=== PATIENT | female | born 1990 | race Caucasian/White ===

== ENCOUNTER 2022-12-24 09:42 | Emergency (ER) | payer BC, SELFPAY ==
[2022-12-24] VITALS (12 sets, daily range): BP systolic 106–160; BP diastolic 59–89; PULSE 76–112; RESP 16–20; TEMP 36.7; O2SAT 96–100; BMI 37.5
[2022-12-24 09:52] LABS: Microscopic, Urine URINE MICROSCOPIC (MICROSCOPIC)
[2022-12-24 10:07] LABS: Appearance,Urine Clear (Clear); Bilirubin,Urine Negative (Negative); Blood, Urine Negative (Negative); Color,Urine Yellow (Yellow); Glucose,Urine (UA) Negative (Negative); Ketones,Urine Negative (Negative); Nitrate,Urine Negative (Negative); Protein,Urine Negative (Negative); Specific Gravity, Urine 1.025 (1.005-1.030); Urobilinogen,Urine 0.2 EU/dl (0.2)
[2022-12-24 10:08] LABS: Leukocyte Esterase,Urine Negative (Negative)
--- NOTE | 2022-12-24 10:09 | PC.NURSE ---
pt lying on ed stretcher with emesis bag. family at BS. she reports no needs at this time. call light within reach
[2022-12-24 10:29] LABS: Chloride 106 mmol/L (98-107)
[2022-12-24 10:30] LABS: Basophils # 0.1 K/mm3 (0-0.2); Eosinophils # 0.5 K/mm3 (0.0-0.4); Eosinophils % 5.3 % (0.1-12.0); Hemoglobin 11.5 g/dL (12.2-16.2); Lymphocytes # 3.4 K/mm3 (0.7-4.5); Mean Corpuscular HGB Conc 33.7 g/dL (31.8-35.4); Mean Corpuscular Hemoglobin 20.4 pg (27.0-31.2); Mean Corpuscular Volume 60.5 fl (81-99); Mean Platelet Volume 7.3 fl (7.4-10.4); Monocytes # 0.4 K/mm3 (0.1-1.0); Monocytes % 3.9 % (1.7-9.3); Neutrophils # 5.3 K/mm3 (1.8-7.8); Neutrophils % 54.8 % (37.0-80.0); Platelet Count 335 K/mm3 (142-424); Potassium 4.1 mmoL/L (3.5-5.1); Red Blood Count 5.62 M/mm3 (4.20-5.40); Red Cell Distribution Width 15.8 % (11.5-17.5); Sodium 142 mmol/L (136-145); White Blood Count 9.7 K/mm3 (4.8-10.8)
--- NOTE | 2022-12-24 10:30 | HMH.EDGENADL ---
Discharge Plan Disposition Patient Disposition: Home, Self-Care Condition: Good Prescriptions Prescriptions: New promethazine 25 mg tablet 25 mg PO Q6H PRN (Reason: sedation) Qty: 10 0RF Referrals Follow up/Referrals: Hermelinda Cohn APRN [Primary Care Provider] - See instructions Activity Restrictions/Add. Instructions Additional Instructions/Restrictions: Phenergan as needed for nausea. Continue ibuprofen for pain. Call your primary care provider today to arrange further care. Additional instructions for ABDOMINAL PAIN: See your physician as soon as possible for further evaluation. Return immediately if worsening abdominal pain, vomiting, shortness of breath, fever, vomiting of blood or abdominal distention. Clinical Impressions Clinical Impression: Abdominal pain, Nausea Instructions Patient Instructions: DI for Acute Abdominal Pain, DI for Nausea -- Adult Discharge ED Provider: Jovany Chao Adult HPI General Chief complaint: Abdominal Pain Stated complaint: abd pain, phy ref Time Seen by Provider: 12/24/22 10:25 Mode of Arrival: Ambulatory Source of Information: Patient Limitations: No Limitations Description of Symptoms (Recalled from ER Triage Doc. by RN): pt reports abdominal pain ongoing since last night. upon further assessment pt reports pain off and on for approx. 2 years. pt has had total hysterectomy. History of Present Illness HPI narrative: Complains of diffuse lower abdominal pain since 5 PM yesterday evening. States that she has a constant pressure in that area with intermittent severe sharp pains. Nausea, but no vomiting. No diarrhea or constipation or urinary symptoms. No fever. States that she has had similar pains for couple of years a couple of times a month but they usually only last an hour or 2 and then go away. This 1 has not gone away. She has never had a work-up for this pain. She has had a prior hysterectomy for endometriosis. She has had a cholecystectomy. She took ibuprofen 800 mg a couple of hours before coming to the emergency room. Declines any further pain medication at this time. Related Data Previous Rx's Medication Instructions Recorded promethazine 25 mg tablet 25 mg PO Q6H PRN sedation #10 tabs 12/24/22 Allergies Allergy/AdvReac Type Severity Reaction Status Date / Time ondansetron [From Zofran] AdvReac Headache Verified 12/24/22 10:18 [facility] Disclaimer: The information contained in this section may have been updated after the patient was seen, as this information can be updated by other users. Social History Smoking Status: Never smoker ROS Obtained: Yes All systems reviewed & no additional complaints except as documented Constitutional Constitutional: Denies fever(s), Denies headache(s) and Denies weakness ENT Ears, Nose, Mouth, and Throat: Denies headache(s), Denies nasal discharge and Denies sore throat Cardiovascular Cardiovascular: Denies chest pain Respiratory Respiratory: Denies shortness of breath and Denies cough Gastrointestinal Gastrointestingal: Reports abdominal pain and nausea; Denies constipation, diarrhea or vomiting Genitourinary Female Genitourinary: Denies difficulty voiding, Denies dysuria and Denies flank pain Musculoskeletal Musculoskeletal: Denies numbness Neurologic Neurologic: Denies headache(s), Denies numbness and Denies weakness Physical Exam General General appearance: alert and in no apparent distress Head Head exam: atraumatic and normocephalic Eye Eye exam: Present normal appearance and EOMI ENT ENT exam: Present mucous membranes moist Neck Neck exam: Present normal inspection and trachea midline Chest Chest inspection: Present normal inspection and symmetric chest wall rise Respiratory Respiratory exam: Present normal lung sounds bilaterally; Absent respiratory distress Cardiovascular Cardiovascular exam: Present regular rate, normal rhythm and normal heart sounds Abdomina
[2022-12-24 10:32] LABS: Alanine Aminotransferase 52 U/L (12-78); Albumin Level 4.5 g/dl (3.5-5.0); Albumin/Globulin Ratio 1.2 (1.1-1.8); Alkaline Phosphatase 80 U/L (38-126); Anion Gap 10.1 mEq/L (5-15); Aspartate Amino Transferase 46 U/L (14-36); Bilirubin,Total 0.8 mg/dl (0.2-1.3); Blood Urea Nitrogen 10 mg/dl (7-17); Calcium 9.3 mg/dl (8.4-10.2); Carbon Dioxide 30 mmol/L (22.0-30.0); Creatinine Clearance Estimated 213 mL/min (50-200); Estimated Glomerular Filt Rate 117 ml/min (>60); GFR (African American) 141 ML/MIN (>60); Globulin 3.7 g/dL (1.3-3.2); Glucose 90 mg/dl (74-100); Total Protein,Serum 8.2 g/dl (6.3-8.2)
[2022-12-24 10:32] LABS: RBC,Urine Occasional #/hpf (0-3)
--- NOTE | 2022-12-24 10:32 | CT_ITS ---
FINAL REPORT TECHNIQUE: After the administration of oral and intravenous contrast, axial images were obtained through the abdomen and pelvis by computed tomography. The study was performed with techniques to keep radiation dose as low as reasonably achievable, (ALARA). Individual dose reduction techniques using automated exposure control or adjustment of mA and/or kV according to the patient's size were employed. CLINICAL HISTORY: abdo pain COMPARISON: May 2017 FINDINGS: Abdomen: The lung bases are clear. There is moderate diffuse fatty infiltration of the liver. The gallbladder is surgically absent. The spleen, pancreas, adrenals and kidneys appear unremarkable. The previously mentioned left renal stone is not identified on this infused exam. The aorta is normal in caliber. There is no free fluid or adenopathy. Pelvis: The appendix is normal. The urinary bladder is unremarkable. There is no free fluid or adenopathy. IMPRESSION: No acute intra-abdominal process. Reviewed, Interpreted and Dictated by Ovidio Ramos MD Transcribed by Nithin Richardson Authenticated and [facility]
[2022-12-24 10:33] LABS: Bacteria,Urine Trace /lpf
[2022-12-24 10:48] LABS: Lipase 133 U/L (23-300)
--- NOTE | 2022-12-24 11:22 | PC.NURSE ---
merly landeros avised after pt was given contrast she vomited
--- NOTE | 2022-12-24 11:58 | PC.NURSE ---
pt lying on ED stretcher, friend at BS. No needs at this time. call light within reach
== END 2022-12-24 13:40 | disposition home or self-care (01) ==
PROVIDERS: Emergency Provider Emergency Medicine; PCP Nurse Practitioner
DX: R10.30 Lower abdominal pain, unspecified (principal); R11.0 Nausea
CPT/HCPCS: 74177; 80053; 81001; 83690; 85025; 96374; 96375; 99285; Q9967

== ENCOUNTER → 2022-12-25 23:00 | Outpatient (CLI) | payer BC, SELFPAY ==
[2022-12-25 18:24] LABS: Basophils # 0.1 K/mm3 (0-0.2); Basophils % 0.6 % (0.1-2.0); Eosinophils # 0.5 K/mm3 (0.0-0.4); Hematocrit 36.8 % (37.0-47.0); Hemoglobin 12.1 g/dL (12.2-16.2); Lymphocytes # 3.4 K/mm3 (0.7-4.5); Lymphocytes % 33.2 % (10-50); Mean Corpuscular HGB Conc 32.8 g/dL (31.8-35.4); Mean Corpuscular Hemoglobin 20.3 pg (27.0-31.2); Mean Corpuscular Volume 61.9 fl (81-99); Mean Platelet Volume 9.9 fl (7.4-10.4); Monocytes # 0.5 K/mm3 (0.1-1.0); Monocytes % 4.9 % (1.7-9.3); Neutrophils # 5.8 K/mm3 (1.8-7.8); Neutrophils % 56.3 % (37.0-80.0); Platelet Count 427 K/mm3 (142-424); Red Blood Count 5.95 M/mm3 (4.20-5.40); Red Cell Distribution Width 15.8 % (11.5-17.5); White Blood Count 10.3 K/mm3 (4.8-10.8)
== END ==
LOC: LAB.DROPOF 12-26 00:07
PROVIDERS: PCP Nurse Practitioner; Visit Provider Nurse Practitioner
DX: R10.30 Lower abdominal pain, unspecified (principal); R11.0 Nausea; R10.9 Unspecified abdominal pain
CPT/HCPCS: 85025; 87086

== ENCOUNTER → 2023-07-23 10:35 | Outpatient (CLI) | payer BC, SELFPAY ==
--- NOTE | 2023-07-23 11:02 | ECG_ITS ---
APPROVED REPORT Exam: Resting ECG HR:73 bpm ECG Measurements Heart Rate 73 AXES [place] 158 P 4 QRSd 102 QRS -6 QT 387 T 2 QTc 413 Conclusion SINUS RHYTHM INCOMPLETE RIGHT BUNDLE BRANCH BLOCK [90+ ms QRS DURATION, TERMINAL R IN V1/V2, 40+ ms S IN I/aVL/V4/V5/V6] VOLTAGE CRITERIA FOR LVH [MEETS CRITERIA IN ONE OF: R(aVL), S(V1), R(V5), R(V5/V6)+S(V1)] ABNORMAL ECG UNCONFIRMED REPORT Electronically signed by : Thierry Otero MD 07/24/2023 20:00:36
[2023-07-23 11:16] LABS: Coronavirus 19, PCR Not Detected (NotDetected); Influenza A, PCR Not Detected (NotDetected); Influenza B, PCR Not Detected (NotDetected)
--- NOTE | 2023-07-23 11:27 | XR_ITS ---
FINAL REPORT CLINICAL HISTORY: chest pain FINDINGS: Two views of the chest were obtained. The heart size and pulmonary vascularity are within normal limits. The mediastinum is normal. No acute pulmonary abnormality is identified. There is no pneumothorax. The bony thorax is intact. IMPRESSION: No active cardiopulmonary disease. Reviewed, Interpreted and Dictated by Gilbert Jacob III, MD Transcribed by Nona Cee Authenticated and [facility]
[2023-07-23 11:40] LABS: Basophils % 0.5 % (0.1-2.0); Eosinophils # 0.2 K/mm3 (0.0-0.4); Eosinophils % 2.8 % (0.1-12.0); Hematocrit 36.4 % (37.0-47.0); Hemoglobin 11.7 g/dL (12.2-16.2); Lymphocytes # 3.3 K/mm3 (0.7-4.5); Lymphocytes % 39.7 % (10-50); Mean Corpuscular HGB Conc 32.2 g/dL (31.8-35.4); Mean Corpuscular Hemoglobin 19.8 pg (27.0-31.2); Mean Corpuscular Volume 61.6 fl (81-99); Mean Platelet Volume 8.1 fl (7.4-10.4); Monocytes # 0.4 K/mm3 (0.1-1.0); Monocytes % 4.8 % (1.7-9.3); Neutrophils # 4.4 K/mm3 (1.8-7.8); Neutrophils % 52.1 % (37.0-80.0); Platelet Count 320 K/mm3 (142-424); Red Cell Distribution Width 15.3 % (11.5-17.5); White Blood Count 8.4 K/mm3 (4.8-10.8)
[2023-07-23 11:50] LABS: Hemoglobin A1C 5.4 % (4.0-6.0)
[2023-07-23 11:59] LABS: D-Dimer 0.73 ug/mL (0.0-0.5)
[2023-07-23 12:12] LABS: Chloride 102 mmol/L (98-107)
[2023-07-23 12:13] LABS: Potassium 4.3 mmoL/L (3.5-5.1); Sodium 139 mmol/L (136-145)
[2023-07-23 12:15] LABS: Alanine Aminotransferase 61 U/L (12-78); Alkaline Phosphatase 96 U/L (38-126); Aspartate Amino Transferase 44 U/L (14-36); Bilirubin,Total 0.7 mg/dl (0.2-1.3); Blood Urea Nitrogen 12 mg/dl (7-17); Estimated Glomerular Filt Rate 116 ml/min (>60); GFR (African American) 140 ML/MIN (>60)
[2023-07-23 12:16] LABS: Albumin Level 4.2 g/dl (3.5-5.0); Albumin/Globulin Ratio 1.2 (1.1-1.8); Anion Gap 14.3 mEq/L (5-15); Calcium 9.8 mg/dl (8.4-10.2); Carbon Dioxide 27 mmol/L (22.0-30.0); Globulin 3.4 g/dL (1.3-3.2); Glucose 91 mg/dl (74-100); Total Protein,Serum 7.6 g/dl (6.3-8.2)
[2023-07-23 12:21] LABS: NT Pro Brain Natriuretic Pep. < 20.0 pg/mL (0-125)
[2023-07-23 12:43] LABS: Thyroid Stimulating Hormone 3.32 uIU/mL (0.465-4.68)
== END ==
LOC: LAB 10:36
PROVIDERS: PCP Nurse Practitioner; Visit Provider Nurse Practitioner
DX: R06.02 Shortness of breath (principal); R07.9 Chest pain, unspecified; J06.9 Acute upper respiratory infection, unspecified
CPT/HCPCS: 36415; 71046; 80053; 83036; 83880; 84443; 85025; 85378; 87636; 93005

== ENCOUNTER → 2023-07-24 16:35 | Outpatient (CLI) | payer BC, SELFPAY ==
--- NOTE | 2023-07-24 16:35 | CT_ITS ---
PROCEDURE INFORMATION: Exam: CTA Chest With Contrast Exam date and time: 07/24/2023 4:44 PM Age: 33 years old Clinical indication: Shortness of breath; Additional info: SOB, elevated d-dimer TECHNIQUE: Imaging protocol: Computed tomographic angiography of the chest with contrast. Exam focused on the arteries. 3D rendering (Not supervised by radiologist): MIP and/or 3D reconstructed images were created by the technologist. Radiation optimization: All CT scans at this facility use at least one of these dose optimization techniques: automated exposure control; mA and/or kV adjustment per patient size (includes targeted exams where dose is matched to clinical indication); or iterative reconstruction. Contrast material: ISOVUE 370; Contrast volume: 70 ml; Contrast route: INTRAVENOUS (IV); REPORTING DATA: Count of CT and Cardiac NM exams in prior 12 months: This patient has received [address] and 0 known cardiac nuclear medicine studies in the 12 months prior to the current study. COMPARISON: CR XR CHEST 2V 07/23/2023 11:34 AM FINDINGS: Pulmonary arteries: Normal. No pulmonary emboli. Aorta: Unremarkable. No aortic aneurysm. No aortic dissection. Lungs: Unremarkable. No consolidation. No masses. Pleural spaces: Unremarkable. No pneumothorax. No pleural effusion. Heart: Unremarkable. No cardiomegaly. No pericardial effusion. Coronary arteries: There is no significant coronary vascular calcification/atherosclerotic disease. Lymph nodes: Unremarkable. No enlarged lymph nodes. Bones/joints: Unremarkable. No acute fracture. Soft tissues: Unremarkable. IMPRESSION: No evidence for clinically relevant pulmonary arterial filling defect, dense parenchymal consolidation, pleural effusion, or pneumothorax. No acute intrathoracic anomaly.
== END ==
LOC: RAD 16:35
PROVIDERS: PCP Nurse Practitioner; Visit Provider Nurse Practitioner
DX: R06.02 Shortness of breath (principal); R07.2 Precordial pain; R79.89 Other specified abnormal findings of blood chemistry
CPT/HCPCS: 71275; Q9967

== ENCOUNTER → 2023-07-28 08:39 | Outpatient (CLI) | payer BC, SELFPAY ==
--- NOTE | 2023-07-28 | CA_ITS ---
APPROVED REPORT Exam: Exercise Treadmill Technologist: Marielena Jenkins Ht: 5 ft 4 in Wt: 224 lbs BSA: 2.05 m2 HR: 82 bpm BP: 150/90 mmHg Indications: Chest pain Medical History Medications: Hyoscyamine,,,,, ProMETHAZINE,,,,, Losartan/HCTZ,,,,, Ciprofloxacin,,,,, Stress Test Details Test: Jose HR Resting HR: 88 bpm Max Heart Rate (APMHR): 188.162986 bpm Max HR Achieved: 167 bpm Target HR (85% APMHR): 159.832898 bpm % of APMHR: 88.83 Recovery HR: 97 bpm BP Resting BP: 150.0/90.0 mmHg Max BP: 180.0/72.0 mmHg Recovery BP: 154.0/92.0 mmHg ECG Resting ECG: Sinus rhythm Clinical Exercise duration: 07:09 min Highest Stage Achieved: Exercise capacity: 10.1 METs Stress ECG Conclusion Symptoms: Dyspnea, chest pain, dizziness, lightheaded Arrhythmias/Ectopy: PVC ST-T Changes: Less than [address] depression Conclusion: Normal EKG response to exercise. Test Summary REST . . . . . . . Sitting REST 03:20 0.0 0.0 88 . 150/ 90 . . Stage 1 01:00 10.0 1.7 111 . . . . Stage 1 02:00 10.0 1.7 118 . . . . Stage 1 03:00 10.0 1.7 115 . 152/ 88 . . Stage 2 01:00 12.0 2.5 130 . 152/ 88 . . Stage 2 02:00 12.0 2.5 142 . 152/ 88 . . Stage 2 03:00 12.0 2.5 143 . 176/ 90 . . Stage 3 01:00 14.0 3.4 163 . . . . Stage 3 01:09 14.0 3.4 166 . . . Stop exercise at 07:09 RECOVERY 01:00 0.0 0.0 144 . 180/ 72 . . RECOVERY 02:00 0.0 0.0 109 . 180/ 72 . . RECOVERY 03:00 0.0 0.0 106 . 176/102 . . RECOVERY 04:00 0.0 0.0 87 . 174/ 94 . . RECOVERY 05:00 0.0 0.0 95 . 154/ 92 . . RECOVERY 05:09 0.0 0.0 97 . 154/ 92 . . Electronically signed by : Thierry Otero MD 07/29/2023 17:17:35
== END ==
LOC: RT 08:39
PROVIDERS: PCP Nurse Practitioner; Visit Provider Family Medicine
DX: R07.9 Chest pain, unspecified (principal)
CPT/HCPCS: 93017

== ENCOUNTER → 2023-09-10 07:34 | Outpatient (CLI) | payer BC, SELFPAY ==
[2023-09-10 19:37] LABS: Coronavirus 19, PCR Not Detected (NotDetected); Influenza A, PCR Not Detected (NotDetected); Influenza B, PCR Not Detected (NotDetected)
== END ==
LOC: LAB.DROPOF 09-11 07:34
PROVIDERS: PCP Family Medicine; Visit Provider Family Medicine
DX: J02.9 Acute pharyngitis, unspecified (principal); B95.0 Streptococcus, group A, as the cause of diseases classified elsewhere
CPT/HCPCS: 87636

== ENCOUNTER → 2023-10-15 08:45 | Outpatient (CLI) | payer BC, SELFPAY ==
[2023-10-15 18:56] LABS: Coronavirus 19, PCR Not Detected (NotDetected); Influenza A, PCR Not Detected (NotDetected); Influenza B, PCR Not Detected (NotDetected)
== END ==
LOC: LAB.DROPOF 10-16 08:45
PROVIDERS: PCP Nurse Practitioner; Visit Provider Nurse Practitioner
DX: J06.9 Acute upper respiratory infection, unspecified (principal)
CPT/HCPCS: 87636

== ENCOUNTER 2024-05-05 10:41 | Emergency (ER) | payer BC, SELFPAY ==
[2024-05-05 10:54] VITALS: BP 135/90; PULSE 94; RESP 16; TEMP 36.7; O2SAT 99; BMI 35.1
--- NOTE | 2024-05-05 11:11 | CT_ITS ---
FINAL REPORT CLINICAL HISTORY: midline pain after lifting COMPARISON: None FINDINGS: CT LUMBAR SPINE TECHNIQUE: Thin section axial CT with sagittal and coronal reconstructions. No evidence of acute fracture. There is grade 1 spondylolisthesis of L5 on S1. There is a right-sided pars defect at L5. No bony canal stenosis is seen. There is a mild annular disc bulge at L5-S1. IMPRESSION: No evidence of fracture. No bony canal stenosis. Grade 1 spondylolisthesis of L5 on S1 associated with right-sided pars defect. This study was performed using automated techniques to achieve radiation exposure as low as reasonably achievable Reviewed, Interpreted and Dictated by Thomas Reddy MD Transcribed by Jada Haque Authenticated and [facility]
--- NOTE | 2024-05-05 11:12 | HMH.EDGENADL ---
Discharge Plan Disposition Patient Disposition: Home, Self-Care Prescriptions Prescriptions: New methocarbamol 500 mg tablet 1,000 mg PO Q8H PRN (Reason: muscle spasm) Qty: 30 0RF lidocaine 4 % adhesive patch,medicated 1 patch topical DAILY PRN (Reason: back pain) Qty: 15 0RF Rx Instructions: may leave on for up to 12 hrs prednisone 50 mg tablet 50 mg PO DAILY 3 Days Qty: 3 0RF No Action losartan-hydrochlorothiazide [Hyzaar] 100-25 mg tablet 0.5 tab PO DAILY Qty: 90 3RF albuterol sulfate 90 mcg/actuation HFA aerosol inhaler 2 puff inhalation Q4-6H PRN (Reason: shortness of breath or wheezing) Qty: 8.5 0RF fluticasone propionate [Flonase Allergy Relief] 50 mcg/actuation spray,suspension 1 spray intranasal DAILY PRN (Reason: allergic symptoms) Qty: 16 0RF Rx Instructions: administer into each nostril hyoscyamine sulfate 0.125 mg tablet 0.125 mg PO QID PRN (Reason: diarrhea or abdominal cramping) Qty: 30 0RF tamsulosin 0.4 mg capsule 0.4 mg PO DAILY Qty: 30 0RF cetirizine [Zyrtec] 10 mg tablet 10 mg PO DAILY Qty: 90 3RF promethazine 25 mg tablet 25 mg PO TID PRN (Reason: nausea and vomiting) Qty: 20 0RF estradiol 0.1 mg/24 hr patch weekly 1 patch transdermal WEEKLY Qty: 4 5RF Referrals Follow up/Referrals: Hermelinda Cohn APRN [Primary Care Provider] - See instructions Activity Restrictions/Add. Instructions Additional Instructions/Restrictions: At this time it was felt you are safe to be discharged home. If new or worsening symptoms please do not hesitate to return the emergency department. Please follow-up with your family doctor in 1 week for continued evaluation as discussed. Please take Tylenol 1000 mg and ibuprofen 600 mg with food every 6 hours for pain as needed. Please take your medication as prescribed. Clinical Impressions Clinical Impression: Bulging disc, Spondylolisthesis Instructions Patient Instructions: DI for Low Back Pain Discharge ED Provider: Wilton Huizar General Adult HPI General Chief complaint: Back Pain/Injury Stated complaint: severe back pain Time Seen by Provider: 05/05/24 11:01 Mode of Arrival: Ambulatory Source of Information: Patient Limitations: No Limitations Description of Symptoms (Recalled from ER Triage Doc. by RN): pt reported to ED for back pain that started last night. Pt states having a tingling feeling in her pelvic area. Pt states going to doctor this morning and was referred to ED for pain. Pt states taking 4 200 mg ibuprofens every 6 hours since yesterday for pain and using ice and heat with no improvement of pain. History of Present Illness HPI narrative: Patient is a 34-year-old female with no pertinent past medical history who presents to the emergency department for evaluation of low back pain. Patient was lifting something yesterday and since then has had back pain in a bandlike distribution around her lower back and in the center. No urinary or fecal incontinence, no weakness. Pain is moderate to severe in intensity and refractory to ibuprofen. Patient has past surgical history of previous hysterectomy. Related Data Previous Rx's Medication Instructions Recorded albuterol sulfate 90 mcg/actuation 2 puff inhalation Q4-6H PRN 07/23/23 aerosol inhaler shortness of breath or wheezing #8.5 grams losartan 100 0.5 tab PO DAILY #90 tabs 07/23/23 mg-hydrochlorothiazide 25 mg tablet (Hyzaar) hyoscyamine sulfate 0.125 mg tablet 0.125 mg PO QID PRN diarrhea or 08/04/23 abdominal cramping #30 tabs tamsulosin 0.4 mg capsule 0.4 mg PO DAILY #30 caps 08/04/23 fluticasone propionate 50 1 spray intranasal DAILY PRN 09/10/23 mcg/actuation nasal allergic symptoms #16 grams spray,suspension (Flonase Allergy Relief) cetirizine 10 mg tablet (Zyrtec) 10 mg PO DAILY #90 tabs 10/15/23 estradiol 0.1 mg/24 hr weekly 1 patch transdermal WEEKLY #4 ea 10/15/23 transdermal patch promethazine 25 mg tablet 25 mg PO TID PRN nausea and 10/15/23 vomiting #20 tabs lidocaine 4 % topical patch 1 patch topical DAILY PRN back 05/05/24 pain #15 ea methocarbamol 500 mg tablet 1,000 mg (2 x 500 mg) PO Q8H PRN 05/05/24 muscle spasm #30 tabs prednisone 50 mg tablet 50 mg PO DAILY back pain 3 days #3 05/05/24 tabs Allergies Allergy/AdvReac Type Severity Reaction Status Date / Time ondansetron [From Zofran] AdvReac Headache Verified 05/05/24 08:48 [facility] Disclaimer: The information contained in this section may have been updated after the patient was seen, as this information can be updated by other users. Medical History (Updated 05/05/24 @ 12:45 by Wilton Huizar MD) Burning sensation of female perineum Acute low back pain with bilateral sciatica Chest pain Hypertension Social History Smoking Status: Former smoker alcohol intake: never current occupational status: employed Travel in the last 8 weeks: None ROS Obtained: Yes Systems reviewed as appropriate & no additional complaints except as documented Physical Exam General General appearance: alert and in no apparent distress Head Head exam: atraumatic and normocephalic Eye Eye exam: Present PERRL ENT ENT exam: Present mucous membranes moist Neck Neck exam: Present normal inspection Chest Chest inspection: Present normal inspection and symmetric chest wall rise Respiratory Respiratory exam: Present normal lung sounds bilaterally; Absent respiratory distress Cardiovascular Cardiovascular exam: Present regular rate and normal rhythm Abdominal Exam Abdominal exam: Present soft; Absent tenderness Extremities Exam Extremities exam: Present normal inspection and other (5 out of 5 strength bilateral lower extremities sensation intact to light touch distally.) Back Exam Back exam: Present normal inspection and tenderness (Low lumbar) Neurological Exam Neurological exam: Present alert, oriented X3 and CN II-XII intact; Absent motor sensory deficit Psychiatric Psychiatric exam: Present normal affect Skin Skin exam: Present warm and dry Medical Decision Making Cesar Inquiry Pt receiving controlled substance: No Vital Signs: 05/05/24 10:54 Temperature 98.0 F Temperature Source Oral Pulse Rate [Left Radial] 94 H Respiratory Rate 16 Blood Pressure [Right Arm] 135/90 Blood Pressure Mean [Right Arm] 105 02 Sat by Pulse Oximetry 99 Oxygen Delivery Method Room Air Orders (Tests/Meds): ED MEDICATIONS Discontinued Medications Generic Name Dose Route Start Last Admin Trade Name Freq PRN Reason Stop Dose Admin Acetaminophen 1,000 mg 05/05/24 11:11 05/05/24 11:19 Acetaminophen 500mg Tab PO 05/05/24 11:12 1,000 mg ONCE ONE Administration Lidocaine 1 each 05/05/24 11:11 05/05/24 11:20 Lidocaine 5% Transdermal Patch TP 05/05/24 11:12 1 each ONCE ONE Administration Methocarbamol 1,000 mg 05/05/24 11:11 05/05/24 11:20 Methocarbamol 500mg Tablet PO 05/05/24 11:12 1,000 mg ONCE ONE Administration ORDERS Category Date Time Status CT lumbar spine wo con Stat Cat Scan 05/05/24 11:11 Completed Medical Decision Narrative: In summary patient is a 34-year-old female with past medical history described above who presents emergency department for evaluation of back pain. Patient is hemodynamically stable nontoxic-appearing upon arrival, afebrile. Differential includes musculoskeletal strain, disc protrusion, fracture, among others. Workup will be conducted with CT lumbar spine, postvoid residual. Initial interventions include Tylenol, methocarbamol, lidocaine patch. CT imaging of the lumbar spine shows grade 1 spondylolisthesis of L5 on S1 associated with right-sided pars defect with mild annular disc bulge at L5-S1. On repeat evaluation patient was well-appearing, no focal neurologic deficits, no incontinence. Postvoid residual concerning. Given this patient is appropriate for discharge at this time will be discharged with symptomatic care and was given multiple return precautions and verbalized understanding. Critical Care Critical Care Time Critical Care Time: No
[2024-05-05] MEDS: ACETAMINOPHEN 500MG TAB 1000 MG PO (11:19)
[2024-05-05] MEDS: LIDOCAINE 5% TRANSDERMAL PATCH 1 EACH TP (11:20)
[2024-05-05] MEDS: METHOCARBAMOL 500MG TABLET 1000 MG PO (11:20)
--- NOTE | 2024-05-05 13:02 | PC.NURSE ---
PVR 34 mL
[2024-05-05] MEDS: predniSONE 20MG TAB 40 MG PO (13:06)
[2024-05-05 13:30] VITALS: BP 139/87; PULSE 82; RESP 16; TEMP 36.7; O2SAT 98
== END 2024-05-05 13:31 | disposition home or self-care (01) ==
PROVIDERS: Emergency Provider Emergency Medicine; PCP Nurse Practitioner
DX: M51.26 Other intervertebral disc displacement, lumbar region (principal); M43.16 Spondylolisthesis, lumbar region; I10 Essential (primary) hypertension
CPT/HCPCS: 72131; 99284

== ENCOUNTER 2024-05-26 07:40 | Outpatient (RCR) | payer BC, SELFPAY ==
--- NOTE | 2024-05-26 12:58 | [facility].PTOPEV ---
PT Outpatient Evaluation Rehab PT Outpatient Evaluation Start: 05/26/24 07:49 Freq: Status: Active Protocol: Document 05/26/24 07:49 MAXIME (Rec: 05/26/24 09:01 MAXIME [email or web address]) E-signed By Christal Chavez, PT Outpatient Therapy Subjective History Subjective History This is an initial evaluation for Trish Allison who presents with acute LBP. Pt reports these symptoms started after pushing a big cabinet ~ 3 weeks ago and noticed the LBP immediately. Pt reports the pain was severe and would radiate into her L hip and R de leon. Pt reports her symptoms have slowly improved since and are about 40-50% improved. Pt works with senior citizens and performs daily exercises. Pt avoids bending, lifting, and twisting. Pt uses heat and topical Icy Hot to relieve her pain. Pt trialed ice but reports no relief with ice. Pt 's goal for physical therapy is to be able to do stretches at home to help my pain in the long run Pt denying worsening weakness. Pt mentioned one episode of incontinence but none since. Pt reports she used to have numbness in groin but it has decreased (reports her PCP is aware of symptoms) CT Impression 05/05: No evidence of fracture. No bony canal stenosis. Grade 1 spondylolisthesis of L5 on S1 associated with right-sided pars defect. New diagnosis of cancer in past 12 No months? Chief Complaint Pain Symptom Type Ache Symptoms Relieved By Rest/Positioning,Heat,Ice Symptoms Aggravated By Sitting,Standing,Bending/ Stooping,Twisting,Lifting Prior Functional Limitations None Current Functional Limitations Lifting,Housework,Driving, Sleeping,Sitting,Recreation Activity Level of pain today (0-10) 3 Pain scale - at its best (0-10) 0 Pain scale - at its worst (0-10) 7 Lumbopelvic Eval Posture Thoracic Spine Posture Standing Position Neutral Lumbar Spine Posture Standing Position Neutral Palapation tenderness bilateral thoracic spinal tenderness Yes: 1/4 lumbar spinal tenderness Yes: 2/4 paraspinal tenderness Yes: 2/4 Lumbar/Sacral Palpation Findings Tenderness Range of Motion Lumbar Spine Active Flexion Range of 70, nonpainful Motion (degrees) Lumbar Spine Active Extension Range of 15, painful Motion (degrees) Left Lumbar Spine Lateral Flexion Active 22, painful Range of Motion (degrees) Right Lumbar Spine Lateral Flexion 20, painful Active Range of Motion (degrees) Lumbar Spine ROM Limitations Pain Manual Muscle Test Bilateral Knee Extension Strength Grade 4- Good- Knee Flexion Strength Grade 4- Good- Hip Flexion Strength Grade 4- Good- Hip Abduction Strength Grade 4- Good- Hip Adduction Strength Grade 4- Good- Special Tests Sciatic Nerve Tension Test Positive Left,Positive Right Crossed Straight Leg Raise Test Positive Left,Positive Right Oswestry Index Section 1 Pain Intensity The pain comes and goes and is moderate Section 2 Personal Care (Washing,Dresing) change my way of washing or dressing in order to avoid pain Section 3 Lifting lifting heavy weights off the floor, but I can manage if they are Section 4 Walking I have no pain when walking Section 5 Sitting Pain prevents me from sitting for more than one hour Section 6 Standing I cannot stand more than 1 hour without increasing pain Section 7 Sleeping Because of my pain, my normal night's sleep is less than 6 hours sleep Section 8 Social Life My social life is normal and gives me no extra pain Section 9 Traveling I get some pain when traveling , but none of my usual forms of travel m Section 10 Changing Degreee of Pain My pain seems to be getting better, but improvement is slow Score and Risk Level Oswestry Sc 14 Oswestry Risk Level Mild Disability Outpatient Therapy Assessment Impairments Problems/Impairmments Palpation Tenderness,Impaired Range of Motion,Impaired Strength,Impaired Standing, Impaired Sitting,Impaired Driving,Impaired Lifting, Impaired Bending,Impaired Recreational Activities, Impaired Work Activities, Impaired Desk/Computer Activities,Subjective C/O Pain Prognosis Rehab Potential Good Comment Pt with deficits and subjective complaints consistent with her medical diagnosis and CT imaging results. Pt would benefit from skilled OP PT to address weakness, pain, and impaired ROM/functioning. Clinical Impression Consistent with Diagnosis Yes Short Term Goals Number of Weeks 3 Increase Range of Motion Yes: Improve by 5 degrees in all limited planes to improve functional ROM Increase Strength Yes: 4/5 BLE MMTs Improve Oswestry Score Yes: Improve by 4 points. Decrease Subjective C/O Pain Yes: At worst LBP 5/10 to demo decreased pain severity. Patient to be Ind w/ HEP Yes Custodial Goals Number of Weeks 6 Decreased Palpation Tenderness Yes: 0/4 TTP paraspinals to decrease symptom irritability. Increase Range of Motion Yes: WNL and painfree AROM to return to PLOF Increase Strength Yes: 5/5 BLE MMTs to maximize daily functioning. Improve Oswestry Score Yes: Decrease score to no disability to return to PLOF and improve QOL. Decrease Subjective C/O Pain Yes: At worst LBP 3/10 to minimize symptoms severity. Patient to be Ind w/ Advanced HEP Yes Outpatient Therapy Plan of Care Treatment Plan May Include Therapeutic Exercise Including Home Yes Exercise Program Manual Therapy Techniques Yes Neuromuscular Re-education Yes Therapeutic Activities to Return to Yes Previous Functional/Work Level Gait Training Yes ADL/Self Care Education Yes Dry Needling Yes Thermal Modalities Yes Electrical Stimulation Yes Ultrasound/Phonophoresis Yes Iontophoresis Yes Orthotics/Bracing/Splinting Yes Massage Yes Eval/Re-Eval Yes Frequency Times per week 2x Duration Number of Weeks 5-6 weeks Addendums This patient is a candidate for social No or vocational rehab? Patient/Guardian verbally acknowledges Yes understanding of treatment program and consents to further treatment? Patient/Guardian verbally acknowledges Yes understanding of diagnosis, prognosis and goals for treatment? Eval Complexity PT Charges 30063 - Low Complexity Shoulder/Elbow Eval Shoulder Objective Measurements Elbow Objective Measurements PHYSICIAN CERTIFICATION: I certify the specified therapy services for Trish Allison are required, authorized, and reviewed every 30 days.
== END 2024-05-26 09:00 | disposition home or self-care (01) ==
LOC: PT 07:40
PROVIDERS: Visit Provider Nurse Practitioner
DX: M54.42 Lumbago with sciatica, left side (principal); M54.41 Lumbago with sciatica, right side; M43.10 Spondylolisthesis, site unspecified; M51.36 Other intervertebral disc degeneration, lumbar region
CPT/HCPCS: 97163

== ENCOUNTER 2024-07-21 19:02 | Outpatient (CLI) | payer BC, SELFPAY ==
[2024-07-21 18:14] LABS: Basophils # 0.1 K/mm3 (0-0.2); Basophils % 0.5 % (0.1-2.0); Eosinophils # 0.5 K/mm3 (0.0-0.4); Eosinophils % 5.3 % (0.1-12.0); Hematocrit 36.2 % (37.0-47.0); Hemoglobin 11.1 g/dL (12.2-16.2); Lymphocytes # 3.6 K/mm3 (0.7-4.5); Lymphocytes % 38.8 % (10-50); Mean Corpuscular HGB Conc 30.6 g/dL (31.8-35.4); Mean Corpuscular Hemoglobin 19.8 pg (27.0-31.2); Mean Corpuscular Volume 64.7 fl (81-99); Mean Platelet Volume 7.7 fl (7.4-10.4); Monocytes # 0.5 K/mm3 (0.1-1.0); Monocytes % 4.9 % (1.7-9.3); Neutrophils # 4.6 K/mm3 (1.8-7.8); Neutrophils % 50.5 % (37.0-80.0); Platelet Count 341 K/mm3 (142-424); Red Blood Count 5.59 M/mm3 (4.20-5.40); Red Cell Distribution Width 15.9 % (11.5-17.5); White Blood Count 9.2 K/mm3 (4.8-10.8)
[2024-07-21 18:42] LABS: Erythrocyte Sedimentation Rate 14 mm/hr (0-20)
[2024-07-21 20:18] LABS: C-Reactive Protein 14.4 mg/L (0-4)
[2024-07-23 16:27] LABS: Lyme Ab CIA Negative (Negative)
== END 2024-07-21 23:59 | disposition home or self-care (01) ==
LOC: LAB.DROPOF 19:02
PROVIDERS: PCP Nurse Practitioner; Visit Provider Nurse Practitioner
DX: S60.462A Insect bite (nonvenomous) of right middle finger, initial encounter (principal); W57.XXXA Bitten or stung by nonvenomous insect and other nonvenomous arthropods, initial encounter
CPT/HCPCS: 85025; 85651; 86140; 86618